=== PATIENT | male | born 1955 | race Caucasian/White ===

== ENCOUNTER 2024-01-21 16:38 | Emergency (ER) | payer OTHER, SELFPAY ==
[2024-01-21 16:46] VITALS: BP 93/66
[2024-01-21 17:55] VITALS: BP 105/76
--- NOTE | 2024-01-21 18:37 | ED.GENMED ---
History of Present Illness
General
Chief Complaint: Fall
Source: patient
Exam Limitations: none
Time Seen by Provider: 01/21/24 17:58
History of Present Illness
History of Present Illness:
This is a 68 year old male that comes in with c/o fall. States that he was moving furniture and he was pulling backward when he either tripped or slipped and he fell backward. States that he hit the back of his head and his right rib area is sore.
Denies any LOC. States that he tried to get up but he is at [facility]. States that he has a slight headache and was only dizzy after he fell. Denies any fever, chills, chest pain, SOB, abd pain, nausea, vomiting, diarrhea.
Past History
Past History
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
ED Past Surgical History: Tonsilectomy (and adenoids)
Social History
Tobacco: Former smoker
Alcohol: Former
Personal:
Living: alf ([facility])
Review of Systems
Review of Systems
All Other Systems: ROS reviewed and negative except as documented in HPI and ROS
Constitutional: Reports no symptoms; Denies fever or chills
EENT: Reports no symptoms
Respiratory: Denies cough or trouble breathing
Cardiac: Reports no symptoms; Denies chest pain
ABD/GI: Reports no symptoms; Denies abdominal pain, nausea, vomiting or diarrhea
: Reports no symptoms; Denies dysuria, frequency or urgency
Musculoskeletal: Reports other (Right rib discomfort)
Skin: Reports other (abrasion right posterior head)
Neurological: Reports dizzy (only after fall) and headache (Slight)
Psychiatric: Reports no symptoms
Phy Exam
General Physical Exam
General Presentation: no apparent distress
General age: appears stated age
General Skin: warm and dry
General Habitus: normal
General Mental: alert
General Hydration: appears well hydrated
ENT Exam
ENT Exam: TM's normal, pharynx normal and neck supple
Eye Exam
Eye Exam: EOMI
Cardiovascular Exam
Cardiovascular Exam: regular rate/rhythm and normal peripheral pulses
Pulmonary Exam
Pulmonary Exam: lungs clear, no respiratory distress, no rales, chest non tender, no crackles, no rhonchi, no wheezing and no cough
Gastrointestinal Exam
Gastrointestinal Exam: normal bowel sounds, non tender, soft, no organomegaly, no pulsatile mass and non distended
Musculoskeletal Exam
Musculoskeletal Exam: full ROM and other (Negative for any cervical neck tenderness or spinal tenderness, Negative discomfort with flexion of the knee's inversion or everfsion. )
Skin Exam
Skin Exam: normal color, warm/dry, no rash, no petechia and other ( skin abrasion to the right flank noted)
Psychiatric Exam
Psychiatric Exam: normal mood/affect
Course
Orders/Labs/Results
Orders:
Orders
01/21/24 16:[address] [CT Head W/o Iv Contrast] Urgent
Comment:
Reason For Exam: fall with head injury
01/21/24 17:56
Ribs, Right 3 View W/PA Chest [CR Ribs-right 3 Vw W/pa Chest*] Urgent
Comment:
Reason For Exam: FALL
Vital Signs
Initial and Last Documented VS:
Initial Vital Signs
Temp Pulse Resp BP Pulse Ox
98.4 F 57 16 93/66 100
01/21/24 16:46 01/21/24 16:46 01/21/24 16:46 01/21/24 16:46 01/21/24 16:46
Last Documented Vital Signs
Temp Pulse Resp BP Pulse Ox
98.4 F 56 19 102/59 97
01/21/24 16:46 01/21/24 21:41 01/21/24 21:41 01/21/24 21:41 01/21/24 21:41
MDM/Problems Addressed
Differential Diagnosis Includes:
Accidental fall, Abrasion scalp and flank
MDM/Problems Addressed:
This is a 68 year old male that comes in with c/o accidental fall when moving furniture. States that he fell backward hitting his head and right rib area.
will get CT head and rib series.
Chronic conditions affecting care:
NA
Acute Exacerbation and/or Progression of Chronic Illness:
NA
*Radiology
Radiology exam reviewed: radiology read reviewed (CT head-4.3cm acute scalp soft tissue hematoma lateral to the left parietal bone. No CT evidence for acute intracranial hemorrhage. Moderate bilateral frontal and temporal lobe volume loss. Mild
white matter leukoaraiosis in both cerebral hemispheres. Chest-No radiographic evidence for acute right) and all reviewed NAD by ED Provider (Chest cont- right rib fracture, pneumothorax, or hemothorax. Chronic healed left posterior rib fractures.
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 )
*Pulse Oximetry
Patient hypoxic: no
*EKG
Interpreted by ED Provider?: NA
Rate: EKG- N/A
*Coffee Roaster Helper Interpretation
Rate: Coffee Roaster Helper- N/A
*Critical Care Note
Total Time (30-74mins, 75-104mins- exclusive of procedures): Not Applicable
ED Attending Note
-
Portions of this chart may have been created with voice recognition software.� Occasional wrong word or��sound alike� substitutions may have occurred due to the inherent limitations of voice recognition software.
Discharge Plan
Departure
Patient Disposition: Home (Routine Discharge)
Date of Disposition: 01/21/24
Time of Disposition: 19:59
Patient with high blood pressure during this ER visit?: No
Condition: Good
Covid-19: Not Applicable
Discharge Problem:
Accidental fall, Abrasion
Instructions: Preventing falls in adults, Skin Abrasions (DC)
Referrals:
Sukumar Flores I., DO [Family Provider] - Call in 1-3 days for appt
Activity Restrictions/Additional Instructions:
As discussed, your CT of the head is negative for any acute process. You have an abrasion of the scalp and abrasion of the skin on the right flank. NO acute intracranial process and there are no rib fractures noted. Please use Ibuprofen as needed
for any discomfort. You may also use Ice to the next 24 hours to any area that is sore. Follow up with the family doctor for recheck. IF YOU HAVE ANY OTHER CONCERNS PLEASE RETURN TO THE EMERGENCY ROOM.
Interventions
Interventions:
*Risk Screen - Suicide Last Done: 01/21/24 16:46
*General Assessment Last Done: 01/21/24 16:46
*Neglect/Abuse Screening Last Done: 01/21/24 16:46
ED- Fall Risk Assessment Last Done: 01/21/24 21:42
*ED COVID-19 Vaccine History Last Done: 01/21/24 17:58
*Nursing Disposition Last Done: 01/21/24 21:42
ED-Musculoskeletal Assessment Last Done: 01/21/24 17:58
ED- Neurological Assessment Last Done: 01/21/24 17:58
ED-Skin Assessment Last Done: 01/21/24 17:58
Discharge Date and Time
Discharge Date/Time: 01/21/24 21:43
Print Language: SPANISH
[2024-01-21 21:41] VITALS: BP 102/59
== END 2024-01-21 21:43 | disposition home or self-care (01) ==
LOC: EMR 16:38
PROVIDERS: EMERGENCY PHYSICIAN Emergency Medicine; FAMILY PHYSICIAN Internal Medicine
DX: S30.811A Abrasion of abdominal wall, initial encounter (principal); S00.01XA Abrasion of scalp, initial encounter; R51.9 Headache, unspecified; R42 Dizziness and giddiness; W19.XXXA Unspecified fall, initial encounter; Y93.89 Activity, other specified; I48.91 Unspecified atrial fibrillation; K74.60 Unspecified cirrhosis of liver; Z87.891 Personal history of nicotine dependence
CPT/HCPCS: 99284; 70450; 71101